=== PATIENT | male | born 1950 | race Caucasian/White ===

== ENCOUNTER 2021-02-27 07:59 | Outpatient (CLI) | payer MEDICARE, OTHER, SELFPAY ==
--- NOTE | 2021-02-27 08:20 | RAD_ITS ---
PROCEDURE: Fluoroscopic guided left shoulder Injection DATE: 02/27/2021. INDICATION: Male, 70 years old. Chronic left shoulder pain. PHYSICIAN: Humphrey Shaffer M.D. MEDICATIONS: 12 mg of BETAMETHASONE and 4 cc of 1% LIDOCAINE. 2% Lidocaine administered subcutaneously for local anesthesia. ACCESS SITE: Left shoulder. NEEDLE: 22-gauge spinal needle. FLUOROSCOPY TIME (if supplied): (0:55) minutes/seconds. One image was obtained. FINDINGS: The risks, benefits, and alternatives to the procedure were explained to the patient. The specific risks of bleeding, infection, and neurovascular injury were detailed and accepted. Witnessed informed consent was obtained. A 22-gauge spinal needle was positioned under radiographic fluoroscopic localization. Approximately 2 cc of ISOVUE-300 instilled for localization purposes. Medication was then injected. The patient tolerated the procedure well without any immediate complications. RAD/Inj/Asp Awais Jt Should/Hip/Knee IMPRESSION: 1. Successful fluoroscopic guided left shoulder injection. Electronically Signed: Humphrey Shaffer MD at 9:32 EST , Service support ,
[2021-02-27] MEDS: Lidocaine 2% (5ml sdv) 5 ML VIAL.MPF INFILT (08:30)
[2021-02-27] MEDS: Betamethasone/Betamethasone 30 MG/5 ML Vial 12 MG INTRAARTIC (08:30)
[2021-02-27] MEDS: Lidocaine 1% (5 ml sdv) 5 ML Vial 4 ML INFILT (08:30)
== END 2021-02-27 23:59 | disposition short-term general hospital (02) ==
LOC: RAD 08:03
PROVIDERS: PCP Internal Medicine; Referring Provider Specialist; Visit Provider Specialist
DX: M19.012 Primary osteoarthritis, left shoulder (principal)
CPT/HCPCS: 20610; 77002; Q9967; J0702